=== PATIENT | male | born 2000 | race Caucasian/White ===

== ENCOUNTER 2021-04-05 23:46 | Emergency (ER) | payer OTHER ==
[~2021-04-05] VITALS: Ht 177.8 cm; Wt 70.3 kg
[2021-04-05 23:59] VITALS: BP_SYST 105
[2021-04-06 02:46] VITALS: BP_SYST 107
== END 2021-04-06 02:46 | disposition home or self-care (01) ==
LOC: SED 23:46
DX: S20.211A Contusion of right front wall of thorax, initial encounter (principal); W22.8XXA Striking against or struck by other objects, initial encounter; Y93.89 Activity, other specified; Y92.89 Other specified places as the place of occurrence of the external cause; Y99.8 Other external cause status
CPT/HCPCS: 71045; 71100; 99284

== ENCOUNTER 2024-01-03 22:20 | Emergency (ER) | payer OTHER ==
[~2024-01-03] VITALS: Ht 177.8 cm; Wt 70.3 kg
[2024-01-03 22:26] VITALS: BP_SYST 108; PULSE 95; RESP 21; TEMP 97.6; O2SAT 95
[2024-01-03] MEDS ORDERED: CIPR500T5 PO (22:52)
[2024-01-03] MEDS ORDERED: NAPR-690 PO (22:52)
== END 2024-01-03 22:52 | disposition home or self-care (01) ==
LOC: SED 22:20
DX: N45.1 Epididymitis (principal); Z79.899 Other long term (current) drug therapy; Z79.2 Long term (current) use of antibiotics
CPT/HCPCS: 99283

== ENCOUNTER 2024-01-10 18:07 | Emergency (ER) | payer OTHER ==
[~2024-01-10] VITALS: Ht 177.8 cm; Wt 70.3 kg
[~2024-01-10 18:07] MED LIST: CIPR500T5 PO; NAPR-690 PO
[2024-01-10 18:18] VITALS: BP_SYST 119; PULSE 91; RESP 18; TEMP 98.3; O2SAT 97
[2024-01-10 20:41] VITALS: BP_SYST 119; PULSE 91; RESP 18; TEMP 98.3; O2SAT 97
== END 2024-01-10 20:41 | disposition home or self-care (01) ==
LOC: SED 18:07
DX: N50.811 Right testicular pain (principal); Z79.899 Other long term (current) drug therapy; Z79.2 Long term (current) use of antibiotics
CPT/HCPCS: 76870; 99284

== ENCOUNTER 2024-01-13 23:13 | Emergency (ER) | payer OTHER ==
[~2024-01-13] VITALS: Ht 177.8 cm; Wt 70.3 kg
[2024-01-13 23:28] VITALS: BP_SYST 110; PULSE 95; RESP 20; TEMP 98; O2SAT 98
[2024-01-13] MEDS ORDERED: IBUP-1969 PO (23:37)
[2024-01-13] MEDS ORDERED: DOXY100C5 PO (23:37)
[2024-01-13] MEDS: DOXYCYCLINE HYCLATE 100 MG TABLET PO ONE (23:55)
[2024-01-13] MEDS: IBUPROFEN 600 MG TABLET PO ONE (23:56)
[2024-01-13 23:57] VITALS: BP_SYST 111; PULSE 81; RESP 20; TEMP 97.3; O2SAT 98
== END 2024-01-13 23:57 | disposition home or self-care (01) ==
LOC: SED 23:13
DX: N50.811 Right testicular pain (principal); Z79.899 Other long term (current) drug therapy; Z79.2 Long term (current) use of antibiotics
CPT/HCPCS: 99283